=== PATIENT | male | born 1970 | race Caucasian/White ===

== ENCOUNTER 2025-05-14 12:09 | Emergency (ER) | payer OTHER, SELFPAY ==
[2025-05-14 12:10] VITALS: BP 164/98; PULSE 92; RESP 16; TEMP 36.4; O2SAT 98
--- NOTE | 2025-05-14 12:30 | RAD_ITS ---
PROCEDURE: HUMERUS MIN 2 VIEWS 05/14/2025 REASON FOR EXAM: INJURY TECHNIQUE: Procedure Code: RADHUM Modality: DX Procedure: HUMERUS MIN 2 VIEWS Right humerus two views COMPARISON: None FINDINGS: There is no fracture or dislocation identified. Mineralization is normal. There is no visible soft tissue abnormality or radiopaque foreign body. RAD/Humerus min 2 Views IMPRESSION: No fracture or dislocation is identified. Reading Location: [facility]
--- NOTE | 2025-05-14 12:30 | RAD_ITS ---
PROCEDURE: SHOULDER MIN 2 VIEWS 05/14/2025 REASON FOR EXAM: INJURY TO POSTERIOR SHOULDER W/ NEUROPATHY TECHNIQUE: Procedure Code: RAD Modality: DX Procedure: SHOULDER MIN 2 VIEWS Right shoulder four views COMPARISON: None FINDINGS: There is no fracture or dislocation identified. The AC joint is aligned. The joint space appears maintained. Mineralization is normal. There is no visible soft tissue abnormality. RAD/Shoulder min 2 Views IMPRESSION: No fracture or dislocation is identified. Reading Location: [facility]
--- NOTE | 2025-05-14 12:31 | EX.ED.UPPERE ---
HPI History of Present Illness Chief Complaint: Upper Extremity Injury Informant: patient Narrative Narrative: Patient is a 54-year-old RHD male presenting with right hand weakness and numbness following an injury. - 3d ago, patient was closing doors on a trailer at work when the wind blew the door shut, causing him to be wedged between the trailer and the door. He states the door hit him forcefully in the right scapula area and the back of the right elbow, did not sustain injury to his neck or other parts of the back joiner to the midline. Did not fall or have other injury. - Initially felt a sensation similar to hitting his funny bone with tingling, which subsided. - Woke up next morning unable to move his right hand, describing it as limp. Did not have weakness the initial day of injury. - Reports numbness in specific areas, particularly from the wrist down and slightly in the forearm. It is still present but not as bad as it was several days ago when it started. - Experiences mild pain in the bicep, tricep, and occasionally the forearm; describes it as feeling like a sore muscle. - Reports a little pain in the neck, but none in the shoulder or shoulder blade. [facility] Medical History Back pain Allergy/AdvReac Type Severity Reaction Status Date / Time No Known Allergies Allergy Verified 05/14/25 12:10 Social History Smoking Status: Current every day smoker tobacco type: cigarettes ROS ROS ED Constitutional Constitutional ED: Denies chills or fever(s) Musculoskeletal Musculoskeletal: Denies back pain, extremity pain or neck pain Integumentary Denies Abrasions, rash or wounds Neurologic Neurologic: Reports paresthesias RUE and weakness EXAM Physical Exam Const Vital Signs: 05/14/25 12:10 Temperature 97.6 F L Temperature Source Temporal Pulse Rate 92 Respiratory Rate 16 Blood Pressure 164/98 H Blood Pressure Mean 120 Pulse Ox 98 Oxygen Delivery Method Room Air Positive well nourished and well developed General Appearance ED: well developed and NAD Neck full ROM and supple Back/Spine normal ROM and normal to inspection Extremity Extremity Narrative: No bony tenderness. Full passive range of motion of shoulder, elbow, wrist without any difficulty and no swelling or deformity. He is having trouble extending at the wrist, not due to pain. All compartments are soft and nondistended he can actively move the elbow and shoulder in all directions without limitation or difficulty. There is no bony tenderness. Positive Tinel at the ulnar tunnel. Neuro oriented x3, no focal motor deficits and no sensory deficits noted Neuro Narrative: Patient is not able to actively extend the fingers or the hand on the right. He is having trouble adducting all of the fingers but he can bend them all and form a fist and he can oppose with his thumb without difficulty. He is also having trouble with AIN and PIN branches, as he cannot make a thumbs up. With regards to sensation, tested him with sharp objects, and he has no sensory loss or asymmetry in any dermatomal or peripheral nerve distribution of the right upper extremity from the axillary nerve distribution all the way down into all the fingers, with the exception of when I perform Tinel's test at the ulnar tunnel where he temporarily gets paresthesias in an ulnar nerve distribution. Sensorium / Orientation: alert Psych mental status grossly normal and thought process normal Skin no wounds Rashes: no rashes MDM MDM MDM Narrative Medical decision making narrative: Patient?s exam is consistent with a radial nerve palsy. He does not have any objective sensory deficits at this time. He has mild Tinel?s at the ulnar nerve tunnel, but does not appear to have an ulnar nerve palsy. I obtained x-rays of the humerus (2 views) and x-rays of the shoulder girdle, including the scapula (4 views). Both appear normal in my interpretation, and radiology is in agreement. I spoke with orthopedics regarding these findings, expressing concern that the patient likely has a neuropraxia since there are no associated fractures and the weakness was gradual in onset after the injury. Orthopedics agrees and recommends a Velcro wrist splint for the patient to use as needed. They also concur that this is more likely a neuropraxia of the radial nerve than a brachial plexus injury or a radiculopathy. The patient was advised to follow up and was given a Velcro prefabricated splint. Portions of this note were generated using voice recognition software ([employer]). I have reviewed the contents and every effort has been made to ensure accuracy; however, inadvertent errors in grammar, spelling, punctuation, or word choice may occur, that were not noted before signing the document and should not alter the intended clinical meaning. Radiography Diagnostic Testing: Clinical Impression(s) from Imaging Studies Humerus X-Ray 05/14/25 12:30 IMPRESSION: No fracture or dislocation is identified. Reading Location: [facility] Shoulder X-Ray 05/14/25 12:30 IMPRESSION: No fracture or dislocation is identified. Reading Location: [facility] Management Discussion w/another healthcare provider: Financial Analysis Advisor (Dr. Moreau, orthopaedics) Discharge Plan Triage Chief Complaint: Upper Extremity Injury ED Provider: Jaspreet Skinner Dx/Rx/DC Orders Clinical Impression: Acute radial nerve palsy of right upper extremity, Injury of radial nerve at upper arm level, right arm, initial encounter Instructions: ED Radial Nerve Palsy Primary Care Provider: Care Physician,No Primary Referrals: Bossman Moreau MD [Med Staff - Active Staff, Orthopedics] - As soon as possible Print Language: Moroccan Disposition Disposition: Home, Self Care
[2025-05-14 13:51] VITALS: BP 134/78; PULSE 81; RESP 16; TEMP 36.4; O2SAT 100
== END 2025-05-14 13:51 | disposition home or self-care (01) ==
PROVIDERS: Emergency Provider Emergency Medicine; Visit Provider Emergency Medicine
DX: S54.21XA Injury of radial nerve at forearm level, right arm, initial encounter (principal); G56.31 Lesion of radial nerve, right upper limb; F17.210 Nicotine dependence, cigarettes, uncomplicated; W23.0XXA Caught, crushed, jammed, or pinched between moving objects, initial encounter
CPT/HCPCS: 73030; 73060; 99282